=== PATIENT | female | born 1990 | race Two or more races ===

== ENCOUNTER 2020-04-04 13:11 | Emergency (ER) | payer MEDICAID ==
[~2020-04-04] VITALS: Ht 165.1 cm; Wt 55.0 kg
[2020-04-04] MEDS ORDERED: BACITRACIN ZINC OINT UDPKT TOP ONE (14:00)
[2020-04-04] MEDS ORDERED: TETANUS, DIPHTHERIA, PERTUSSIS VAC/PF 0.5ML (>7YR OLD) IM ONE (14:00)
[2020-04-04] MEDS ORDERED: IBUPROFEN 600MG TABLET PO ONE (14:00)
[2020-04-04] MEDS ORDERED: LIDOCAINE HCL/PF 1% 10 MG/ML 5ML VIAL IJ ONE (14:00)
[2020-04-04 14:58] VITALS: BP 124/83
== END 2020-04-04 14:59 | disposition home or self-care (01) ==
LOC: ER 13:11
DX: S61.211A Laceration without foreign body of left index finger without damage to nail, initial encounter (principal); X58.XXXA Exposure to other specified factors, initial encounter; Y93.89 Activity, other specified; Y92.89 Other specified places as the place of occurrence of the external cause; Y99.8 Other external cause status
CPT/HCPCS: 12001; 90471; 90715; 99283

== ENCOUNTER 2020-04-14 11:51 | Emergency (ER) | payer MEDICAID ==
[~2020-04-14] VITALS: Ht 165.1 cm; Wt 58.0 kg
[2020-04-14 12:04] VITALS: BP 109/60
== END 2020-04-14 13:00 | disposition home or self-care (01) ==
LOC: ER 11:51
DX: Z48.02 Encounter for removal of sutures (principal)
CPT/HCPCS: 99281